=== PATIENT | male | born 1970 | race Caucasian/White ===

== ENCOUNTER 2019-12-09 19:58 | Emergency (ER) | payer SELFPAY ==
--- NOTE | 2019-12-09 20:08 | EDM.PDOC ---
ED HPI GENERAL MEDICAL PROBLEM - General Chief Complaint: Drug or Alcohol Abuse Stated Complaint: DETOX Time Seen by Provider: 12/09/19 20:07 - History of Present Illness INITIAL COMMENTS - FREE TEXT/NARRATIVE: Pleasant 49-year-old male presents to the emergency room for alcohol withdrawal The patient has been binge drinking for the last week. He has had a lot of problems with alcoholism in the past. This time seems to be worse. When he is not binge drinking he cycles on and off alcohol. The patient denies any illicit drugs or other dependencies. The patient's had some nausea and vomiting. The patient has not had problems with seizures or other significant illnesses when he is tried to stop drinking in the past. Patient does have pretty significant anxiety and thinks this is why he drinks. 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 - Related Data Allergies Allergy/AdvReac Type Severity Reaction Status Date / Time No Known Allergies Allergy Verified 12/09/19 20:15 Home Meds: Home Meds Ondansetron [Zofran ODT] 4 mg PO Q6H #8 tab.dis 12/10/19 [Rx] diazePAM [Valium] 5 mg PO TID #18 tab 12/10/19 [Rx] ED ROS GENERAL - Review of Systems Review Of Systems: See Below Constitutional: Reports: No Symptoms HEENT: Reports: No Symptoms Respiratory: Reports: No Symptoms Cardiovascular: Reports: No Symptoms Endocrine: Reports: No Symptoms GI/Abdominal: Reports: No Symptoms : Reports: No Symptoms Musculoskeletal: Reports: No Symptoms Skin: Reports: No Symptoms Neurological: Reports: No Symptoms ED EXAM, GENERAL - Physical Exam Exam: See Below Exam Limited By: No Limitations General Appearance: Alert, No Apparent Distress Eye Exam: Bilateral Eye: Normal Inspection, PERRL Ears: Normal External Exam, Normal Canal, Hearing Grossly Normal, Normal TMs Nose: Normal Inspection, Normal Mucosa, No Blood Throat/Mouth: Normal Inspection, Normal Lips, Normal Teeth, Normal Gums, Normal Oropharynx, Normal Voice, No Airway Compromise Head: Atraumatic, Normocephalic Neck: Normal Inspection, Supple, Non-Tender, Full Range of Motion. No: Lymphad enopathy (L), Lymphadenopathy (R) Cardiovascular: Normal Peripheral Pulses, Regular Rate, Rhythm, No Edema, Other (He thinks he has a history of a heart murmur but I sure cannot hear it at this time.) GI/Abdominal: Normal Bowel Sounds, Soft, Non-Tender Back Exam: Normal Inspection. No: CVA Tenderness (L), CVA Tenderness (R) Extremities: Normal Inspection, No Pedal Edema Course - Vital Signs Last Recorded V/S: Last Vital Signs Temp 36.2 C 12/09/19 20:09 Pulse 91 12/09/19 20:09 Resp 18 12/09/19 20:09 BP 148/90 H 12/09/19 20:09 Pulse Ox 100 12/09/19 20:09 - Orders/Labs/Meds Orders: Active Orders 24 hr Category Date Time Status EKG Documentation Completion [RC] STAT Care 12/09/19 20:25 Active Calcium Carbonate [Tums] Med 12/09/19 23:24 Active 1,000 mg PO Q2HR PRN Lactated Ringers [Ringers, Lactated] 1,000 ml Med 12/09/19 20:30 Active IV ASDIRECTED Medication Orders Calcium Carbonate/Glycine (Tums) 1,000 mg PO Q2HR PRN PRN Reason: Indigestion Last Admin: 12/09/19 23:44 Dose: 1,000 mg Documented by: NAZARIO Lactated Ringer's (Ringers, Lactated) 1,000 mls @ 150 mls/hr IV ASDIRECTED ILIA Last Admin: 12/09/19 21:49 Dose: 150 mls/hr Documented by: NAZARIO Labs: Laboratory Tests 12/09/19 12/09/19 12/09/19 Range/Units 20:30 20:30 21:30 WBC 5.72 (4.23-9.07) K/mm3 RBC 5.18 (4.63-6.08) M/mm3 Hgb 15.7 (13.7-17.5) gm/dl Hct 45.0 (40.1-51.0) % MCV 86.9 (79.0-92.2) fl MCH 30.3 (25.7-32.2) pg MCHC 34.9 (32.2-35.5) g/dl RDW Std Deviation 41.7 (35.1-43.9) fL Plt Count 337 (163-337) K/mm3 MPV 9.1 L (9.4-12.3) fl Neut % (Auto) 50.5 (34.0-67.9) % Lymph % (Auto) 36.0 (21.8-53.1) % Price % (Auto) 11.5 (5.3-12.2) % Eos % (Auto) 0.2 L (0.8-7.0) Baso % (Auto) 1.6 H (0.1-1.2) % Neut # (Auto) 2.89 (1.78-5.38) K/mm3 Lymph # (Auto) 2.06 (1.32-3.57) K/mm3 Price # (Auto) 0.66 (0.30-0.82) K/mm3 Eos # (Auto) 0.01 L (0.04-0.54) K/mm3 Baso # (Auto) 0.09 H (0.01-0.08) K/mm3 Sodium 136 (136-145) mEq/L Potassium 3.8 (3.5-5.1) mEq/L Chloride 95 L (98-107) mEq/L Carbon Dioxide 29 (21-32) mEq/L Anion Gap 15.8 H (5-15) BUN 21 H (7-18) mg/dL Creatinine 1.6 H (0.7-1.3) mg/dL Est Cr Clr Drug Dosing 58.83 mL/min Estimated GFR (MDRD) 46 (>60) mL/min BUN/Creatinine Ratio 13.1 L (14-18) Glucose 143 H (74-106) mg/dL Calcium 10.2 H (8.5-10.1) mg/dL Magnesium 2.4 (1.8-2.4) mg/dl Total Bilirubin 0.8 (0.2-1.0) mg/dL AST 124 H (15-37) U/L ALT 86 H (16-63) U/L Alkaline Phosphatase 72 (46-116) U/L Total Protein 8.0 (6.4-8.2) g/dl Albumin 4.2 (3.4-5.0) g/dl Globulin 3.8 gm/dL Albumin/Globulin Ratio 1.1 (1-2) TSH 3rd Generation 3.813 H (0.358-3.74) uIU/mL Urine Color Yellow (Yellow) Urine Appearance Clear (Clear) Urine pH 7.0 (5.0-8.0) Ur Specific [place] 1.015 (1.005-1.030) Urine Protein Negative (Negative) Urine Glucose (UA) Negative (Negative) Urine Ketones Negative (Negative) Urine Occult Blood Negative (Negative) Urine Nitrite Negative (Negative) Urine Bilirubin Negative (Negative) Urine Urobilinogen 0.2 (0.2-1.0) Ur Leukocyte Esterase Negative (Negative) Urine Opiates Screen (XADLGK=612) Ur Buprenorphine Scrn (CUTOFF=10) Ur Oxycodone Screen (RMJ7GU=797) Urine Methadone Screen (JIM4FD=117) Ur Propoxyphene Screen (POKMKL=924) Ur Barbiturates Screen (CKYCXU=916) Ur Tricyclics Screen (RILYPU=010) Ur Phencyclidine Scrn (CUTOFF=25) Ur Amphetamine Screen (AGSHZO=931) U Methamphetamines Scrn (KWLXMT=112) U Benzodiazepines Scrn (ZHFICD=989) U Cocaine Metab Screen (YNLQRR=489) U Marijuana (THC) Screen (CUTOFF=50) Ethyl Alcohol 0.19 (0.00) gm% 12/09/19 Range/Units 21:30 WBC (4.23-9.07) K/mm3 RBC (4.63-6.08) M/mm3 Hgb (13.7-17.5) gm/dl Hct (40.1-51.0) % MCV (79.0-92.2) fl MCH (25.7-32.2) pg MCHC (32.2-35.5) g/dl RDW Std Deviation (35.1-43.9) fL Plt Count (163-337) K/mm3 MPV (9.4-12.3) fl Neut % (Auto) (34.0-67.9) % Lymph % (Auto) (21.8-53.1) % Price % (Auto) (5.3-12.2) % Eos % (Auto) (0.8-7.0) Baso % (Auto) (0.1-1.2) % Neut # (Auto) (1.78-5.38) K/mm3 Lymph # (Auto) (1.32-3.57) K/mm3 Price # (Auto) (0.30-0.82) K/mm3 Eos # (Auto) (0.04-0.54) K/mm3 Baso # (Auto) (0.01-0.08) K/mm3 Sodium (136-145) mEq/L Potassium (3.5-5.1) mEq/L Chloride (98-107) mEq/L Carbon Dioxide (21-32) mEq/L Anion Gap (5-15) BUN (7-18) mg/dL Creatinine (0.7-1.3) mg/dL Est Cr Clr Drug Dosing mL/min Estimated GFR (MDRD) (>60) mL/min BUN/Creatinine Ratio (14-18) Glucose (74-106) mg/dL Calcium (8.5-10.1) mg/dL Magnesium (1.8-2.4) mg/dl Total Bilirubin (0.2-1.0) mg/dL AST (15-37) U/L ALT (16-63) U/L Alkaline Phosphatase (46-116) U/L Total Protein (6.4-8.2) g/dl Albumin (3.4-5.0) g/dl Globulin gm/dL Albumin/Globulin Ratio (1-2) TSH 3rd Generation (0.358-3.74) uIU/mL Urine Color (Yellow) Urine Appearance (Clear) Urine pH (5.0-8.0) Ur Specific [place] (1.005-1.030) Urine Protein (Negative) Urine Glucose (UA) (Negative) Urine Ketones (Negative) Urine Occult Blood (Negative) Urine Nitrite (Negative) Urine Bilirubin (Negative) Urine Urobilinogen (0.2-1.0) Ur Leukocyte Esterase (Negative) Urine Opiates Screen Negative (WCKDFR=553) Ur Buprenorphine Scrn Negative (CUTOFF=10) Ur Oxycodone Screen Negative (RIU6EU=422) Urine Methadone Screen Negative (KVN1FS=918) Ur Propoxyphene Screen Negative (QUJYMR=614) Ur Barbiturates Screen Negative (EFLCKP=465) Ur Tricyclics Screen Negative (DCXDMP=345) Ur Phencyclidine Scrn Negative (CUTOFF=25) Ur Amphetamine Screen Negative (ODJYRK=107) U Methamphetamines Scrn Negative (IWCTYD=381) U Benzodiazepines Scrn Negative (MGHKLL=962) U Cocaine Metab Screen Negative (BHSNSV=402) U Marijuana (THC) Screen Negative (CUTOFF=50) Ethyl Alcohol (0.00) gm% Meds: Medications Generic Name Dose Route Start Last Admin Trade Name Freq PRN Reason Stop Dose Admin Calcium Carbonate/Glycine 1,000 mg 12/09/19 23:24 12/09/19 23:44 Tums PO 1,000 mg Q2HR PRN Administration Indigestion Lactated Ringer's 1,000 mls @ 150 mls/hr 12/09/19 20:30 12/09/19 21:49 Ringers, Lactated IV 150 mls/hr ASDIRECTED ILIA Administration Discontinued Medications Generic Name Dose Route Start Last Admin Trade Name Freq PRN Reason Stop Dose Admin Cyanocobalamin 1,000 mcg 12/09/19 20:24 12/09/19 21:49 Vitamin B12 IM 12/09/19 20:25 1,000 mcg ONETIME ONE Administration Folic Acid 1 mg 12/09/19 20:24 12/09/19 21:49 Folic Acid PO 12/09/19 20:25 1 mg ONETIME ONE Administration Lactated Ringer's 1,000 mls @ 999 mls/hr 12/09/19 20:22 12/09/19 20:32 Ringers, Lactated IV 12/09/19 21:22 999 mls/hr .BOLUS ONE Administration Lorazepam 0.5 mg 12/09/19 20:22 12/09/19 20:32 Ativan IVPUSH 12/09/19 20:23 0.5 mg ONETIME ONE Administration Lorazepam 0.5 mg 12/09/19 20:27 12/09/19 23:43 Ativan IVPUSH 12/09/19 20:28 0.5 mg ONETIME ONE Administration Ondansetron HCl 4 mg 12/09/19 20:22 12/09/19 20:32 Zofran IVPUSH 12/09/19 20:23 4 mg ONETIME ONE Administration Ondansetron HCl 4 mg 12/09/19 20:27 12/10/19 01:05 Zofran IVPUSH 12/09/19 20:28 Not Given ONETIME ONE - Re-Assessments/Exams Free Text/Narrative Re-Assessment/Exam: 12/10/19 05:13 Is been discussed with Daisy at [facility] and Daisy is going to come over at about 820 this morning to bring the patient in. Departure - Departure Time of Disposition: 05:14 Disposition: Home, Self-Care 01 Clinical Impression: Alcohol abuse - Discharge Information Prescriptions: diazePAM [Valium] 5 mg PO TID #18 tab Ondansetron [Zofran ODT] 4 mg PO Q6H #8 tab.dis Referrals: PCP,None [Primary Care Provider] - Additional Instructions: Return to the emergency room with any questions problems or worsening symptoms. Patient is cleared to go to the crisis bed at [facility]. Use the Valium and the Zofran as directed Sepsis Event Note (ED) - Focused Exam Vital Signs: Vital Signs Temp Pulse Resp BP Pulse Ox 12/09/19 20:09 36.2 C 91 18 148/90 H 100 - My Orders Last 24 Hours: My Active Orders 12/09/19 20:25 EKG Documentation Completion [RC] STAT 12/09/19 20:30 Lactated Ringers [Ringers, Lactated] 1,000 ml IV ASDIRECTED 12/09/19 23:24 Calcium Carbonate [Tums] 1,000 mg PO Q2HR PRN - Assessment/Plan Last 24 Hours: My Active Orders 12/09/19 20:25 EKG Documentation Completion [RC] STAT 12/09/19 20:30 Lactated Ringers [Ringers, Lactated] 1,000 ml IV ASDIRECTED 12/09/19 23:24 Calcium Carbonate [Tums] 1,000 mg PO Q2HR PRN
[2019-12-09] MEDS ORDERED: Ondansetron 4 MG/2 ML SDV IVPUSH ONE ×2 (20:22→20:27)
[2019-12-09] MEDS ORDERED: Lactated Ringers 1,000 ML IV ONE (20:22)
[2019-12-09] MEDS ORDERED: LORazepam 2 MG/ML SDV IVPUSH ONE ×2 (20:22→20:27)
[2019-12-09] MEDS ORDERED: Folic Acid 1 MG Tab PO ONE (20:24)
[2019-12-09] MEDS ORDERED: Cyanocobalamin (Vitamin B12) 1,000 MCG/ML SDV IM ONE (20:24)
[2019-12-09] MEDS ORDERED: Lactated Ringers 1,000 ML IV SCH (20:30)
[2019-12-09] MEDS ORDERED: Calcium Carbonate 500 MG Tab.Chew PO PRN (23:24)
[2019-12-10] MEDS ORDERED: Diazepam 5 MG Tab PO ONE (05:54)
[2019-12-10] MEDS ORDERED: Ondansetron 4 MG Tab.DIS PO ONE (08:18)
== END 2019-12-10 09:10 | disposition home or self-care (01) ==
LOC: JD.ED 19:58
DX: F10.10 Alcohol abuse, uncomplicated (principal); I45.6 Pre-excitation syndrome; Y90.6 Blood alcohol level of 120-199 mg/100 ml
CPT/HCPCS: 36415; 80053; 80306; 80307; 81003; 83735; 84443; 85025; 93005; 96361; 96372; 96374; 96375; 96376; 99285; A9270; J2060; J2405; J3420; J7120; 99283